=== PATIENT | female | born 1990 ===

== ENCOUNTER → 2018-07-14 19:48 | Outpatient (REF) | payer OTHER, SELFPAY ==
[2018-07-14 21:05] LABS: Add Manual Diff / Slide Review NO; Basophils Absolute Auto 0 /uL (0-100); Basophils Percent Auto 0.6 % (0-2); Eosinophils Absolute Auto 0 /uL (0-450); Eosinophils Percent Auto 0.6 % (2-4); Hematocrit 40.9 % (36-46); Hemoglobin 13.6 g/dL (12.0-16.0); Lymphocytes Absolute Auto 2600 /uL (1100-4500); Lymphocytes Percent Auto 40.3 % (25-40); Mean Corpuscular HGB Conc 33.3 % (30-36); Mean Corpuscular Hemoglobin 28.4 PG (26-34); Mean Corpuscular Volume 85.4 fL (80-100); Monocytes Absolute Auto 300 /uL (0-900); Monocytes Percent Auto 4.7 % (3-14); Neutrophils Absolute Auto 3500 /uL (1500-7000); Neutrophils Percent Auto 53.8 % (50-75); Platelet Count 255 X10^3/uL (150-400); Red Blood Cell Count 4.79 X10^6/uL (4.0-5.2); Red Cell Distribution Width 12.8 % (11.6-14.8); White Blood Cell Count 6.5 X10^3/uL (4.5-11.0)
[2018-07-15 01:43] LABS: HEMOLYSIS < 15 (0-50); Iron 56 ug/dL (37-170)
[2018-07-15 01:53] LABS: Percent Iron Saturation 19 % (15-50); Total Iron Binding Capacity 300 ug/dL (265-497); Transferrin 241 mg/dL (206-381)
[2018-07-16 20:52] LABS: Interpretation PAST INFECTION
[2018-07-17 15:18] LABS: Lyme SCREEN w/ Reflex IgG IgM < 0.90 (< 0.90)
[2018-07-17 15:19] LABS: CMV IgG Antibody < 0.60 U/mL (< 0.60); CMV IgM Antibody < 30.00 AU/mL (< 30.00)
== END ==
LOC: LAB 19:48
PROVIDERS: Visit Provider Naturopath
DX: D50.9 Iron deficiency anemia, unspecified (principal); R53.83 Other fatigue; G89.29 Other chronic pain
CPT/HCPCS: 36415; 83540; 83550; 85025; 86618; 86644; 86645; 86790